=== PATIENT | female | born 1985 | race Caucasian/White ===

== ENCOUNTER → 2016-10-24 | Outpatient (CLI) | payer BC ==
[~2016-10-24] MED LIST: ALBU8.5H2 IH; AMOX1TAB12 PO
[2016-10-24 14:55] VITALS: BP 140/92
--- NOTE | 2016-10-24 14:55 | Urgent Care T Sheet Gen (E) ---
Intake General Temperature (Fahrenheit): 98.8 Pulse: 139 Blood Pressure Systolic: 140 Blood Pressure Diastolic: 92 Respirations: 22 SPO2: 95 Description of Symptoms patient presents with illness since Oct 10. Patient states it started as a cold with chest congestion and sinus congestion. States her symptoms drastically worsened over the past 5 days. Now complains of coughing fits and shortness of breath. States she hasn't been sleeping well due to cough. No fever. Started taking Mucinex last night without much relief. Prior to that, she had been taking Tylenol cold. Respiratory Constitutional Symptoms: No Fever, Malaise EENTM: Nose Congestion Respiratory: Cough Short of breath Wheezing Cardiovascular: No symptoms reported Gastrointestinal/Abdominal: No symptoms reported All Other Systems Reviewed Remaining Systems: All other systems reviewed with negative findings Physical Exam Physical Exam General Appearance: WD/WN No apparent distress Eyes, Ears, Nose, Throat Ex: TMs normal Pharynx normal Other (clear, thin nasal congestion.) Neck Exam: SuppleNo Lymphadenopathy Respiratory Exam: Rhonchi Wheezes Other (patient had consistent cough throughout exam.) Cardiovascular Exam: Regular rate, rhythm Departure Urgent Care Impression Impression: Primary Impression: Bronchitis Departure Disposition: HOME OR SELF-CARE Condition: Stable Additional Instructions: I have started the patient on Augmentin for infection and ProAir HFA as needed for shortness of breath. I offered to prescribed Prednisone however she declined. I have also prescribed Robitussin AC 10ml PO qhs prn #100ml to help her sleep. Rest. Fluids Return as needed Patient understands DC instructions. All questions were answered. Scripts Albuterol Sulfate (Proair HFA)8.5 Gm Hfa.aer.ad2 Puff IH QID PRN SHORTNESS OF BREATH #1 INHALER Prov:KAI POWELL 10/24/16 Amoxicillin/Clavulanate Potassium (Augmentin 875mg/125mg)1 Each Tablet1 Tab PO BID #20 TAB Ref 0 Prov:KAI POWELL 10/24/16 End of report . KAI POWELL Oct 24, 2016 14:55
== END ==
LOC: MHUC 14:34
PROVIDERS: ATTEND Physician Assistant
DX: J40 Bronchitis, not specified as acute or chronic (principal)
CPT/HCPCS: 99213

== ENCOUNTER → 2017-01-23 | Outpatient (CLI) | payer BC | LOC: EMS 14:16 | DX: Z53.20 Procedure and treatment not carried out because of patient's decision for unspecified reasons (principal) ==